=== PATIENT | male | born 1960 | race Caucasian/White ===

== ENCOUNTER 2023-07-28 11:36 | Day surgery (SDC) | payer OTHER ==
[~2023-07-28] VITALS: Ht 182.9 cm; Wt 109.1 kg
--- NOTE | ~2023-07-28 | OR ---
[facility] [address], [place] [address] Draft DATE OF OPERATION: 07/28/2023 SURGEON: Jaja Freire MD PREOPERATIVE DIAGNOSIS: Colon screening. POSTOPERATIVE DIAGNOSIS: Sigmoid diverticulosis and internal hemorrhoids. PROCEDURE: Total colonoscopy to cecum. ANESTHESIA: Intravenous sedation; fentanyl 100 mcg and Versed 6 mg. INDICATION: This 62-year-old white man is a patient of Dr. Preet Hernandez and underwent colonoscopy greater than five years ago by Dr. Hernandez. He has no current symptoms of bleeding, diarrhea, or constipation. No prior findings of polyps. Notably, his brother has been found to have polyps in the past. He is admitted at this time to undergo screening colonoscopy. He understands the risk of bleeding, infection, and perforation. FINDINGS: The prep was adequate. Complete colonoscopy was undertaken to the cecum with full intubation of the cecum. There were diverticula which were small of the left colon and sigmoid. At present, no sign of polyps or colitis. Retroflexed view confirmed internal hemorrhoids. DESCRIPTION OF PROCEDURE: The patient was brought to the endoscopy suite and placed in the lateral decubitus position, given intravenous sedation to the point of slurred speech and nystagmus. Digital rectal examination was normal. An Olympus video colonoscope was passed in the rectum and manipulated throughout the colon noting diverticula of the sigmoid and left colon. Scope was ultimately advanced to the cecum. The ileocecal valve and appendiceal orifice were normal. Attempts at intubating the ileum were unsuccessful. The scope was withdrawn from that point and examination throughout showed no sign of abnormality other than diverticular change of the sigmoid and left colon. All the diverticula were small. Retroflexed view of the PATIENT NAME: SHASTA KENYON OPERATIVE REPORT DATE OF : 56 REPORT #: [id number] PHYSICIAN: JAJA FREIRE MD PCP: ERICA WALKER REPORT IS CONFIDENTIAL AND NOT TO BE RELEASED WITHOUT AUTHORIZATION [facility] [address], [place] [address] Draft rectum showed internal hemorrhoidal change. No other findings of concern. The scope was removed and the patient was taken to the recovery room in good condition. CONCLUDING DIAGNOSIS: Diverticular changes and internal hemorrhoids. PLAN: Recommend high-fiber diet and repeat colonoscopy in 10 years, sooner if clinically indicated. He will return to the ongoing care of Dr. Preet Hernandez. MD JAYLYN Jones/MELINDAL /[id number] cc: Preet Hernandez MD Copies: PREET HERNANDEZ MD ~ PATIENT NAME: SHASTA KENYON OPERATIVE REPORT DATE OF : 56 REPORT #: [id number] PHYSICIAN: JAJA FREIRE MD PCP: ERICA WALKER REPORT IS CONFIDENTIAL AND NOT TO BE RELEASED WITHOUT AUTHORIZATION
[~2023-07-28 11:36] MED LIST: ALLEGRA ALLERGY60 MG PO; CELEXA40 MG PO; IBLOOD GLUCOSE TEST STRIP 1 EA TEST VI PRN; LACTATED RINGER'S 1,000 ML IV SCH; LIDOCAINE HCL 1% 5 ML SDV INJ ONE; LISINOPRIL-HCT1 EACH PO; METFORMIN HCL500 MG PO; MIDAZOLAM HCL 5 MG/5 ML VIAL IV PRN; SIMVASTATIN40 MG PO; TAMSULOSIN HCL0.4 MG PO; fentaNYL citrate 100 MCG/2 ML VIAL IV PRN
[2023-07-28 12:00] VITALS: BP 152/86
[2023-07-28] MEDS ORDERED: MIDAZOLAM HCL 5 MG/5 ML VIAL ONE (13:46)
[2023-07-28] MEDS ORDERED: fentaNYL citrate 100 MCG/2 ML VIAL ONE (13:46)
--- NOTE | 2023-07-28 15:06 | NUR ---
07/28/23 Mark6 Maranda Kline 1502-PATIENT ARRIVED TO PACU ON 2L NC RR EVEN AWAKE DENIES PAIN OR NAUSEA. ABDOMEN SOFT PASSING GAS. IVF INFUSING.
== END 2023-07-28 15:40 | disposition home or self-care (01) ==
LOC: OPS 11:36 → DS 11:47 → OPS 12:15 → DS 12:15 → OPS 13:00
PROVIDERS: ATTEND Surgery
PROC: 0DJD8ZZ Inspection of Lower Intestinal Tract, Via Natural or Artificial Opening Endoscopic (ICD-10-PCS; principal; 2023-07-28 13:00)
DX: Z12.11 Encounter for screening for malignant neoplasm of colon (principal); K57.30 Diverticulosis of large intestine without perforation or abscess without bleeding; K64.8 Other hemorrhoids; I10 Essential (primary) hypertension; E11.9 Type 2 diabetes mellitus without complications; E78.5 Hyperlipidemia, unspecified; E66.01 Morbid (severe) obesity due to excess calories; Z80.0 Family history of malignant neoplasm of digestive organs; Z79.899 Other long term (current) drug therapy; Z79.84 Long term (current) use of oral hypoglycemic drugs; Z86.010 Personal history of colon polyps; Z68.32 Body mass index [BMI] 32.0-32.9, adult
CPT/HCPCS: 99153; G0500; J2250; J3010; J7121